=== PATIENT | male | born 1995 | race Hispanic/Latino ===

== ENCOUNTER 2023-11-25 11:55 | Emergency (ER) | payer MEDICAID, SELFPAY ==
[2023-11-25] VITALS (14 sets, daily range): BP systolic 131–146; BP diastolic 72–91; PULSE 97–127; RESP 12–19; TEMP 37.1; O2SAT 93–97
--- NOTE | ~2023-11-25 | US_ITS ---
EXAMINATION: US venous doppler LE RT DATE: 11/25/2023 12:59 INDICATION: Right lower limb pain TECHNIQUE: Grayscale ultrasound images without and with compression and Doppler ultrasound images of the right lower extremity veins were obtained. COMPARISON: None. FINDINGS: The visualized portions of right common femoral vein, profunda (deep) femoral vein, femoral vein, pop liteal vein, peroneal trunk, posterior tibial veins, peroneal veins and greater saphenous vein outflo w are patent. IMPRESSION: 1. No deep venous thrombosis in the right lower limb. Reviewed, dictated and finalized at location A.
[2023-11-25] MEDS: SODIUM CHLORIDE 0.9% IV 1,000 ML 999 ML IV CONT ×2 (12:12→12:39)
[2023-11-25 12:19] LABS: Basophils Absolute Auto 0.2 K/mm3 (0.0-0.1); Eosinophils Absolute Auto 1.3 K/mm3 (0-0.3); Hematocrit 25.2 % (42.0-52.0); Hemoglobin 9.2 g/dL (14.0-18.0); Immature Granulocyte Absolute 0.19 K/mm3 (0.00-0.031); Immature Granulocyte Percent A 0.9 % (0-0.5); Immature Reticulocyte Fraction 37.7 % (3.0-15.9); Lymphocytes Absolute Auto 3.97 K/mm3 (0.9-3.2); Mean Corpuscular HGB Conc 36.5 g/dl (32-36); Mean Corpuscular Hemoglobin 26.7 pg (26-34); Mean Corpuscular Volume 73.3 fl (80-100); Mean Platelet Volume 8.8 fl (7.4-10.4); Monocytes Absolute Auto 2.3 K/mm3 (0.1-0.6); Monocytes Percent Auto 10.4 % (2.6-8.5); Neutrophils Percent Auto 63.7 % (45.5-73.1); Nucleated Red Blood Cells Perc 1.4 % (0.0-0.2); Platelet Count Result 329 k/mm3 (150-375); Red Blood Count 3.44 M/mm3 (4.6-6.20); Red Cell Distribution Width 23.3 % (11.5-14.5); Reticulocyte Percent 7.05 % (0.7-4.3); Reticulocytes Absolute 0.24 10^6/uL (0.02-0.10)
--- NOTE | 2023-11-25 12:26 | ED.GENADULT ---
HPI - General Adult General Chief complaint: Unspecified Stated complaint: sickle cell crisis Time Seen by Provider: 11/25/23 11:58 History of Present Illness HPI narrative: 28-year-old male presents to the emergency department for evaluation for sickle cell crisis. Patient is from [place] and took 2 flights to arrive to the local area on Wednesday. Patient states he did do some drinking yesterday suspects he may be little dehydrated. Patient typically takes Percocet for his sickle cell pain but does not have any available to him. Patient does describe pain in his bilateral arms which is typical for his sickle cell pain crisis. Patient states he also has pain in his right leg which is not his typical. Related Data Allergies Allergy/AdvReac Type Severity Reaction Status Date / Time No Known Allergies Allergy Verified 11/25/23 12:03 Review of Systems Review of Systems: All systems reviewed & are unremarkable except as noted in HPI and below Exam Narrative: APPEARANCE: Well appearing, no pain, no distress, well-nourished. HEAD: normocephalic, atraumatic. EYES: PERRLA/EOMI, conjunctivae clear. NOSE: Normal no drainage EARS:TMS clear with good light reflex. THROAT: Pharynx clear, no exudate. NECK: Supple. No adenopathy, no masses. RESPIRATORY: Airway patent, respirations nonlabored. Clear to auscultation bilaterally, no rales, rhonchi, wheezing. CARDIOVASCULAR: Regular rate and rhythm without murmurs rubs or gallops. ABDOMINAL: Soft, nontender, nondistended, normal bowel sounds MUSCULOSKELETAL: right leg swelling NEURO: Alert. Cranial nerves II through XII intact. Good gait. Good coordination SKIN: Warm, dry. Normal Color Course Course Emergency Course: patient did feel improved with treatment. Patient was discharged home with medications for pain control Vital Signs Vital signs: Vital Signs Temperature 98.7 F 11/25/23 11:58 Pulse Rate 127 H 11/25/23 11:58 Respiratory Rate 18 11/25/23 11:58 Blood Pressure 146/78 H 11/25/23 11:58 Pulse Oximetry 95 11/25/23 11:58 Oxygen Delivery Room Air 11/25/23 11:58 Temperature 98.7 F 11/25/23 11:58 Pulse Rate 108 H 11/25/23 13:46 Respiratory Rate 16 11/25/23 13:46 Blood Pressure 138/76 07/11/24 13:46 Pulse Oximetry 94 11/25/23 13:46 Oxygen Delivery Room Air 11/25/23 11:58 Medical Decision Making MDM Narrative Medical decision making narrative: 28-year-old male with history of sickle cell disease presents emergency department for evaluation for sickle cell pain crisis. Patient denies any associated chest pain or shortness of breath with this. Patient did have some right leg swelling. Patient was provided IV fluids along with Dilaudid and IV Benadryl. patient was afebrile but patient does have a white count of 22. Patient's hemoglobin is 9.2. Patient does have an elevated LDH. No acute abnormalities on his CMP. Ultrasound was negative for DVT on re-evaluation patient states he does feel improved. Patient states his pain is improved enough is comfortable plan for discharge home. Patient did request medications for pain control for home. Differential Diagnosis Differential Diagnosis: sickle cell pain crisis, dehydration Vital Signs Vital Signs: Vital Signs Temperature 98.7 F 11/25/23 11:58 Pulse Rate 127 H 11/25/23 11:58 Respiratory Rate 18 11/25/23 11:58 Blood Pressure 146/78 H 11/25/23 11:58 Pulse Oximetry 95 11/25/23 11:58 Oxygen Delivery Room Air 11/25/23 11:58 Temperature 98.7 F 11/25/23 11:58 Pulse Rate 108 H 11/25/23 13:46 Respiratory Rate 16 11/25/23 13:46 Blood Pressure 138/76 11/25/23 13:46 Pulse Oximetry 94 11/25/23 13:46 Oxygen Delivery Room Air 11/25/23 11:58 Lab Data 11/25/23 12:11 11/25/23 12:11 Labs: Lab Results 11/25/23 Range/Units 12:11 WBC 22.0 H (4.5-10.0) K/mm3 RBC 3.44 L (4.6-6.20) M/mm3 Hgb 9
[2023-11-25 12:27] LABS: Lactic Acid Reflex 0.8 mmol/L (0.7-2.0)
[2023-11-25 12:28] LABS: Alanine Aminotransferase 19 U/L (6-50); Albumin Level 4.4 g/dL (3.5-5.1); Alkaline Phosphatase 118 U/L (38-126); Anion Gap 10 mmol/L (4-12); Aspartate Amino Transferase 52 U/L (17-59); Bilirubin,Total 4.8 mg/dL (0.2-1.3); Blood Urea Nitrogen 15 mg/dL (9-20); Calcium 8.8 mg/dL (8.4-10.2); Carbon Dioxide 23 mmol/L (22-30); Chloride 109 mmol/L (98-107); Estimated CRCL calculation 109 ml/min; Estimated Glomerular Filt Rate > 60; Glucose 88 mg/dL (65-110); Lactate Dehydrogenase 525 U/L (120-246); Potassium 4.2 mmol/L (3.4-5.0); Sodium 142 mmol/L (137-145)
[2023-11-25 12:33] LABS: INR 1.1; Prothrombin Time 14.6 Seconds (11.1-14.7)
[2023-11-25 12:34] LABS: Partial Thromboplastin Time 28.2 Seconds (22.3-36.8)
[2023-11-25] MEDS: HYDROmorphone HCL INJ (*CRX) 1 MG/ML SYR IV PUSH (12:39)
--- NOTE | 2023-11-25 12:45 | PC.NURSE ---
patient refused benadryl. provider aware
[2023-11-25 12:57] LABS: Anisocytosis 3+; Hypochromasia 2+; Microcytosis 2+ (NORMAL); Platelet Estimate Adequate (Adequate); Poikilocytosis 3+; Sickle Cells 3+; Target Cells 2+
[2023-11-25 12:58] LABS: Ovalocytes 2+
[2023-11-25 13:03] LABS: Schistocytes 2+
[2023-11-25] MEDS: HYDROmorphone HCL INJ (*CRX) 1 MG/ML SYR 0.5 MG IV PUSH (13:29)
== END 2023-11-25 13:59 | disposition home or self-care (01) ==
PROVIDERS: Emergency Provider Emergency Medicine
DX: D57.00 Hb-SS disease with crisis, unspecified (principal); M79.604 Pain in right leg
CPT/HCPCS: 36415; 80053; 83605; 83615; 85025; 85046; 85610; 85730; 93971; 96361; 96374; 96376; 99284; J1170; J7030